=== PATIENT | female | born 1990 | race Caucasian/White ===

== ENCOUNTER → 2020-08-25 | Outpatient (CLI) | payer OTHER | LOC: EMI 07-15 15:00 | DX: G35 Multiple sclerosis (principal); R90.82 White matter disease, unspecified | CPT/HCPCS: 70553; A9577 ==

== ENCOUNTER 2021-01-17 11:10 | Emergency (ER) | payer OTHER ==
[2021-01-17 11:50] LABS: HEMOGLOBIN 14.2 gm/dl (12.3-15.3); RED BLOOD COUNT 4.59 M/UL (4.00-5.10); WHITE BLOOD COUNT 6.5 K/UL (4.5-11.0)
[2021-01-17 12:15] LABS: BUN/CREATININE RATIO 8 (0-10)
[2021-01-17] MEDS ORDERED: ZOFRAN 4 MG TAB4 MG PO (16:59)
== END 2021-01-17 17:10 | disposition home or self-care (01) ==
LOC: ER1 11:10
PROVIDERS: Physician Assistant
DX: R10.32 Left lower quadrant pain (principal); Z88.0 Allergy status to penicillin; F17.210 Nicotine dependence, cigarettes, uncomplicated
CPT/HCPCS: 80053; 81001; 83690; 84703; 85025; 96374; 96375; 99284; J1885; J2270; J2405; J7030; Q9967

== ENCOUNTER → 2021-03-17 | Outpatient (CLI) | payer OTHER ==
[~2021-03-17] MED LIST: ZOFRAN 4 MG TAB4 MG PO
== END ==
LOC: EMI 14:45
DX: G35 Multiple sclerosis (principal)
CPT/HCPCS: 70553; A9577